=== PATIENT | female | born 1990 | race Caucasian/White ===

== ENCOUNTER 2021-03-04 11:22 | Emergency (ER) | payer OTHER ==
[~2021-03-04] VITALS: Ht 172.7 cm; Wt 72.6 kg
[2021-03-04 11:41] LABS: ABSOLUTE NEUTROPHILS 5.1 thou/uL (1.4-8.2); BASOPHILS 0.4 % (0.0-2.0); EOSINOPHILS 0.5 % (0.0-3.0); HEMATOCRIT 45.6 % (37.0-47.0); HEMOGLOBIN 15.4 gm/dL (12.0-15.0); LYMPHOCYTES 18.6 % (24.0-44.0); MCH 31.7 pg (26.0-34.0); MCHC 33.9 g/dL (28.0-37.0); MCV 93.7 fL (80.0-100.0); PLATELET COUNT 206 thou/uL (150-400); POLYS 72.5 % (36.0-66.0); RBC 4.86 mil/uL (4.20-5.00); RDW 12.7 % (10.5-14.5); WBC 7.1 thou/uL (4.0-11.0)
[2021-03-04 12:01] LABS: ANION GAP 12 mmol/L (7-16); BUN 9 mg/dL (7-18); CALCIUM 10.7 mg/dL (8.5-10.1); CHLORIDE 99 mmol/L (98-107); CO2 23 mmol/L (21-32); CREATININE 0.9 mg/dL (0.6-1.0); GLUCOSE 100 mg/dL (74-106); POTASSIUM 3.9 mmol/L (3.5-5.1); SODIUM 134 mmol/L (136-145)
[2021-03-04 12:10] LABS: TROPONIN-I <0.06 ng/mL (<0.06)
--- NOTE | 2021-03-04 13:08 | EKG ---
[address] [address] ELECTROCARDIOGRAM REPORT Name: HERMELINDO DEL RIO Room [facility]: [facility] [id number] Admission: 03/04/21 Attend Phys: Discharge: Date of : [birth year] Report #: [id number] [facility] ED Test Date: 2021-03-04 Test Time: 11:27:20 Pat Name: HERMELINDO DEL RIO Department: Room: Gender: F Hog Sawyer: TALI : 1990 Requested By: Wesley Morales Order Number: [id number] MD: Tarik Singer Measurements Intervals [place] Rate: 77 P: 42 VA: 102 QRS: 64 QRSD: 90 T: 53 QT: 365 QTc: 414 Interpretive Statements Sinus rhythm Short VA interval No previous ECG available for comparison Electronically Signed On 03-04-2021 13:08:41 CDT by Tarik Singer [email or web address] <ELECTRONICALLY SIGNED> By: Tarik Singer MD, [facility] 03/04/21 1308 [id number] Tarik Singer MD, FACC /EPI
[2021-03-04] MEDS ORDERED: AMITRIPTYLINE H50 M3 PO (13:44)
[2021-03-04 14:05] LABS: URINE BILIRUBIN NEGATIVE (Negative); URINE BLOOD NEGATIVE (Negative); URINE CLARITY CLEAR; URINE COLOR YELLOW; URINE GLUCOSE-RANDOM* NEGATIVE (Negative); URINE KETONES NEGATIVE (Negative); URINE LEUKOCYTES-REFLEX NEGATIVE (Negative); URINE NITRITE-REFLEX NEGATIVE (Negative); URINE PROTEIN (DIPSTICK) NEGATIVE (Negative); URINE SPECIFIC GRAVITY 1.015 (1.005-1.035); URINE UROBILINOGEN 0.2 E.U./dl (0.2-1.0)
[2021-03-04] MEDS ORDERED: BENTYL 10 MG CA10 M1 PO (14:25)
[2021-03-04] MEDS ORDERED: MOBIC7.5 MG PO (14:25)
[2021-03-04] MEDS ORDERED: ONDANSETRON HCL4 M2 PO (14:25)
[2021-03-04] MEDS ORDERED: CARAFATE 1 GM TA1 G1 PO (14:25)
[2021-03-04 14:37] VITALS: BP 133/88
== END 2021-03-04 14:38 | disposition home or self-care (01) ==
LOC: ER 11:22
PROVIDERS: Nurse Practitioner
DX: R11.0 Nausea (principal); M94.0 Chondrocostal junction syndrome [Tietze]; Z79.899 Other long term (current) drug therapy; Z88.1 Allergy status to other antibiotic agents